=== PATIENT | male | born 1980 | race Caucasian/White ===

== ENCOUNTER → 2019-02-12 10:31 | Outpatient (CLI) | payer OTHER, SELFPAY ==
[2019-02-12 07:51] VITALS: BMI 25.2
--- NOTE | 2019-02-12 10:34 | RAD_ITS ---
STUDY: X-RAY - RIGHT WRIST REASON FOR EXAM: Male, 38 years old. Follow-up wrist fracture TECHNIQUE: 2 view(s) of the wrist were obtained. COMPARISON: Previous wrist x-rays obtained on 01/19/2019 FINDINGS: Again seen are metallic compression plate in place in the proximal second and third metacarpals. A healing fracture noted involving the posterior aspect of the distal right radial metaphysis with some overlying callus deposition. Fracture of the ulnar styloid is again identified and is unchanged. RAD/Wrist 2 Views IMPRESSION: 1. Healing fracture of the distal right radial metaphysis which is unchanged in position alignment. 2. Compression plates noted in place in the proximal second and third metacarpals 3. Fracture of the ulnar styloid is again identified and is unchanged. Electronically Signed: Lopez Venkat, at 14:18 EDT Tel , Service support ,
== END ==
PROVIDERS: Referring Provider Orthopaedic Surgery; Visit Provider Orthopaedic Surgery
DX: S52.509A Unspecified fracture of the lower end of unspecified radius, initial encounter for closed fracture (principal); S52.611A Displaced fracture of right ulna styloid process, initial encounter for closed fracture; X58.XXXA Exposure to other specified factors, initial encounter; Y93.9 Activity, unspecified; Y92.9 Unspecified place or not applicable; Y99.9 Unspecified external cause status
CPT/HCPCS: 73100

== ENCOUNTER → 2019-02-12 13:16 | Outpatient (CLI) | payer OTHER, SELFPAY ==
[2019-01-18 13:23] VITALS: BMI 25.2
--- NOTE | 2019-01-19 06:20 | RAD_ITS ---
HISTORY: Right wrist fracture for preoperative evaluation. WANTED TO CHECK ON ALIGNMENT EXAMINATION/TECHNIQUE: XR right wrist 3 views COMPARISON: None FINDINGS: Impacted, mildly comminuted fracture of the distal right radius. The main fracture is transversely oriented at the metaphyseal region. Additional longitudinal intra-articular fracture component. Mild dorsal displacement of the major distal radial fracture fragment. No significant fracture angulation. Nondisplaced fracture of the tip of the ulnar styloid process. No dislocation. Previous orthopedic plate and screw fixation of the proximal second and third metacarpals. Remote, healed fracture of the right fifth metacarpal. RAD/Wrist min 3 Views IMPRESSION: 1. Recent impacted, mildly comminuted intra-articular fracture of the distal right radius. Details above. Nondisplaced fracture of the ulnar styloid process tip. 2. Additional chronic changes, as above. at 0706 Reported and signed by: Gregory Hare MD Electronically Signed: Gregory Hare, at 7:05 EDT Tel , Service support ,
[2019-02-12 07:51] VITALS: BMI 25.2
== END ==
PROVIDERS: Referring Provider Orthopaedic Surgery; Visit Provider Orthopaedic Surgery
DX: S52.571A Other intraarticular fracture of lower end of right radius, initial encounter for closed fracture (principal); X58.XXXA Exposure to other specified factors, initial encounter; Y93.9 Activity, unspecified; Y92.9 Unspecified place or not applicable; Y99.9 Unspecified external cause status
CPT/HCPCS: 73110

== ENCOUNTER → 2019-03-03 08:17 | Outpatient (CLI) | payer OTHER, SELFPAY ==
[2019-03-03 08:07] VITALS: BMI 25.2
--- NOTE | 2019-03-03 08:18 | RAD_ITS ---
STUDY: X-RAY - RIGHT WRIST REASON FOR EXAM: Male, 38 years old. Follow-up fracture. TECHNIQUE: 2 view(s) of the wrist were obtained. COMPARISON: 02/12/2019. FINDINGS: There is demineralization of the radius and ulna. There is a healing fracture of the distal radial metaphysis with normal alignment. There is degenerative arthrosis of the radiocarpal articulation. Normal distal radioulnar articulation. Normal carpal bones. Normal carpal articulations. There is mild degenerative arthrosis of the carpometacarpal articulation of the thumb. Normal second through fifth carpometacarpal articulations. There are postoperative changes of the second and third metatarsal bones with fixation plate and screws. Otherwise normal visualized metacarpal bones. The soft tissue structures are unremarkable. There is no demonstrated acute fracture. RAD/Wrist 2 Views IMPRESSION: Diffuse osteopenia along with degenerative disease and postoperative changes as described above. Healing fracture of the distal radius. Electronically Signed: Nelsy Narvaez MD at 1:44 EDT , Service support ,
== END ==
PROVIDERS: Referring Provider Orthopaedic Surgery; Visit Provider Orthopaedic Surgery
DX: S52.501D Unspecified fracture of the lower end of right radius, subsequent encounter for closed fracture with routine healing (principal); X58.XXXD Exposure to other specified factors, subsequent encounter
CPT/HCPCS: 73100

== ENCOUNTER 2019-03-11 11:00 | Outpatient (RCR) | payer OTHER, SELFPAY ==
[2019-02-12 07:51] VITALS: BMI 25.2
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
--- NOTE | 2019-05-04 15:54 | HP.OT.NRP ---
HP - Discharge Summary - Patient Information DANIELLE DEWEY was seen in my office for initial evaluation on 02/16/19. The following Plan of Care was established for this patient: Initial Frequency: 1-2x /Week Initial Duration: 4 Weeks Plan: cont to progress w/ R hand strength and ROM R wrist flexion/extension - Anticipated Interventions Anticipated Interventions: A/AAROM/PROM, Strengthening, Edema Control, Massage, Modalities, Joint Protection/Energy Conservation, Education re assistive Equipment, Education re Diagnosis, Home Program This patient was last seen in our office 03/11/19. Pertinent comments regarding their Occupational therapy will appear below: Pt last seen 03/11/19. Pt making good progress with OT goals for increasing R hand strength and ROM. Educated on R UE HEP and use of modalities as needed. D/C OT POC At this point I will be discontinuing this patient from occupational therapy. I would be happy to see this patient again in the future if found appropriate by the physician. Thank you! Courtney Gonzales
== END 2019-03-11 19:00 | disposition home or self-care (01) ==
LOC: OT 11:00
PROVIDERS: Referring Provider Orthopaedic Surgery; Visit Provider Orthopaedic Surgery
DX: S52.501D Unspecified fracture of the lower end of right radius, subsequent encounter for closed fracture with routine healing (principal)
CPT/HCPCS: 97110; 97165